=== PATIENT | female | born 1995 | race Caucasian/White ===

== ENCOUNTER 2018-11-19 04:30 | Inpatient (IN) | payer BC, MEDICAID ==
[2018-11-19] VITALS (41 sets, daily range): BP systolic 89–154; BP diastolic 6–81
[~2018-11-19] VITALS: Ht 175.3 cm; Wt 106.7 kg
--- NOTE | 2018-11-19 04:45 | NUR ---
YANELYBREA presented to unit via ambulatory from ED, accompanied by family , with c/o INDUCTION. YANELYBREA weighed, gowned, voided, and to bed. EFHM and TOCO applied, VS taken. YANELYBREA oriented to bed controls, call light, TV, heat, and A/C controls.
[2018-11-19] MEDS ORDERED: OXYTOCIN/NORMAL SALINE 500 ML IV SCH ×2 (04:46→11:28)
[2018-11-19] MEDS ORDERED: D5 LR IV SOLUTION 1,000 ML IV SCH (04:46)
[2018-11-19] MEDS ORDERED: PREN-37 PO (04:56)
[2018-11-19 05:32] LABS: BASOPHILS % (AUTO) 0 % (0-10); EOSINOPHILS # (AUTO) 0.1 10^3/uL (0.0-0.3); EOSINOPHILS % (AUTO) 1 % (0-10); HEMATOCRIT 38 % (35-52); HEMOGLOBIN 12.8 G/DL (11.5-16.0); LYMPHOCYTES # (AUTO) 3.1 X 10^3 (1.0-4.0); LYMPHOCYTES % (AUTO) 22 % (12-44); MEAN CORPUSCULAR HEMOGLOBIN 31 PG (25-34); MEAN CORPUSCULAR HGB CONC 33 G/DL (32-36); MEAN CORPUSCULAR VOLUME 92 FL (80-99); MEAN PLATELET VOLUME 11.6 FL (7.4-10.4); MONOCYTES # (AUTO) 1.1 X 10^3 (0.0-1.0); MONOCYTES % (AUTO) 8 % (0-12); NEUTROPHILS # (AUTO) 9.8 X 10^3 (1.8-7.8); NEUTROPHILS % (AUTO) 70 % (42-75); PLATELET COUNT 257 10^3/uL (130-400); RED CELL DISTRIBUTION WIDTH 14.3 % (10.0-14.5); WHITE BLOOD COUNT 14.1 10^3/uL (4.3-11.0)
[2018-11-19] MEDS ORDERED: SUFENTA 0.6MCG/ML BUPIVA 0.125 100 ML ONE (05:54)
[2018-11-19] MEDS ORDERED: fentaNYL INJECTION 100 MCG/2 ML AMP ONE (06:40)
[2018-11-19] MEDS ORDERED: LIDOCAINE PF 2% 5 ML (XYLOCAINE) VIAL ONE (06:40)
[2018-11-19] MEDS ORDERED: BUPIVACAINE 0.25% 30 ML (SENSORCAINE) VIAL ONE (06:40)
[2018-11-19] MEDS ORDERED: LACTATED RINGERS 1,000 ML IV SCH (07:11)
--- NOTE | 2018-11-19 07:12 | History & Physical-OB ---
OB - Chief Complaint & HPI Date/Time Date of Admission: Date of Admission: Nov 19, 2018 at 04:37 Date seen by a Provider: Nov 19, 2018 Time Seen by a Provider: 07:05 Chief Complaint/History OB-Reason for Admission/Chief: Induction of Labor Hx : 3 Hx Para: 2 Expected Date of Delivery: Nov 22, 2018 Gestational Age in Weeks: 39 Gestational Age in Days: 4 Indication for induction: other (39 4/7 weeks gestation) Admission Nurse Assessment Rev: Yes Allergies and Home Medications Allergies Coded Allergies: No Known Drug Allergies (Unverified , 11/19/18) Patient Home Medication List Home Medication List Reviewed: Yes OB - History Hx of Present Care: Yes Ultrasounds: Normal mid trimester US Obstetrical Complications: None Medical Complications: None Information Induced Hypertension: No Maternal Gestational Diabetes: No Hemorrhage: No Obstetrical History Hx : 3 Hx Para: 2 Hx # Term Pregnancies: 2 Hx # Pregnancies: 0 Number of Living Children: 2 Hx Termination: No Hx Multiple Gestation: No Hx Ectopic : No Hx Stillbirth: No Hx Complication: No Hx Induced Hypertens: No Hx Maternal Gestational Diabet: No Hx Hemorrhage: No Delivery History Hx Dystocia: No Hx Forceps Assisted Delivery: No Hx Vacuum Extraction Assisted: No Hx Placenta Abnormality: No Hx Distress: No Hx Large For Gestational Age I: No Hx Small for Gestational Age I: No Hx Section: No Hx Vaginal Delivery Post C-Sec: No Hx Blood Disorders: No Adverse Rxn to Tranfusion: No Patient Past Medical History Noncontributory Social History/Family History HIV/AIDS: No Sexually Transmitted Disease: No Alcohol Use: Denies Use Recreational Drug Use: No OB - Admission Exam Physical Exam HEENT: PERRLA Heart: Rhythm Normal Lungs: Clear Abdomen: Gravid Extremities: Edema (Minimal edema) Cervical Dilatation: 2cm Effacement: 50% Station: -3 Membranes: Intact Heart Rate: 140's Accelerations: Accelerations Present Decelerations: Prolonged Decelerations (Prolonged deceleration (2 minutes) prior to start of Pitocin or AROM) Short Term Variability: Present Product Manager [employer] Variability: Average (6-25) Intensity: Moderate Lilly Scoring Tool (Modified) Dilation (cm): 1-2cm (1) Effacement (%): 51-79% (2) Descent/Station: -3 (0) Cervix Consistency: Medium(1) Cervix Position: Middle/Mid-Position (1) Labs Laboratory Tests Test 11/19/18 05:15 Range/Units White Blood Count 14.1 H 4.3-11.0 10^3/uL Red Blood Count 4.19 L 4.35-5.85 10^6/uL Hemoglobin 12.8 11.5-16.0 G/DL Hematocrit 38 35-52 % Mean Corpuscular Volume 92 80-99 FL Mean Corpuscular Hemoglobin 31 25-34 PG Mean Corpuscular Hemoglobin Concent 33 32-36 G/DL Red Cell Distribution Width 14.3 10.0-14.5 % Platelet Count 257 130-400 10^3/uL Mean Platelet Volume 11.6 H 7.4-10.4 FL Neutrophils (%) (Auto) 70 42-75 % Lymphocytes (%) (Auto) 22 12-44 % Monocytes (%) (Auto) 8 0-12 % Eosinophils (%) (Auto) 1 0-10 % Basophils (%) (Auto) 0 0-10 % Neutrophils # (Auto) 9.8 H 1.8-7.8 X 10^3 Lymphocytes # (Auto) 3.1 1.0-4.0 X 10^3 Monocytes # (Auto) 1.1 H 0.0-1.0 X 10^3 Eosinophils # (Auto) 0.1 0.0-0.3 10^3/uL Basophils # (Auto) 0.0 0.0-0.1 10^3/uL OB - Assessment/Plan/Diagnosis Assessment Assessment: induction of labor Admission Dx Intrauterine at 39 4/7 weeks 2, Unknown GBS Status Admission Status: Inpatient Order (span 2 midnights) Reason for Inpatient Admission: Pitocin Induction of Labor with expectant Vaginal Delivery Plan Plan: Induction Induction Method: per Pitocin Protocol SUSAN RANGEL DO Nov 19, 2018 07:12
[2018-11-19] MEDS ORDERED: NALOXONE 0.4 MG/ML 1 ML (NARCAN) VIAL IV PRN (07:15)
[2018-11-19] MEDS ORDERED: ONDANSETRON 4 MG/2 ML (SDV) Z0FRAN IV PRN (07:15)
[2018-11-19] MEDS ORDERED: diphenhydrAMINE 50 MG/ML INJ (BENADRYL) IV PRN (07:15)
[2018-11-19] MEDS ORDERED: EPIDURAL (SUFENTA 0.6MCG/ML BUPIVA 0.125%) 100 ML BAG EPI PRN (07:15)
--- NOTE | 2018-11-19 08:00 | NUR ---
IV pitocin infusing for induction of labor. Rate changed to 999ml for remainder of bag at 1042. Additional 500 ml of Pitocin hung at 1117 @ 125ml/hr with completion at 1515. Saline locked.
[2018-11-19] MEDS ORDERED: WITCH HAZEL(TUCKS) 40 EA JAR TOP PRN (11:30)
[2018-11-19] MEDS ORDERED: TETANUS,DIPTH,PERTUSS P/F (BOOSTRIX) 0.5 ML VIAL IM ONE (11:30)
[2018-11-19] MEDS ORDERED: MEASLES,MUMPS,RUBELLA 1 EA INJ SQ ONE (11:30)
--- NOTE | 2018-11-19 11:59 | OB Labor & Delivery Record ---
L&D History Date of Service Date of Service: Nov 19, 2018 History Expected Date of Delivery: Nov 22, 2018 Gestational Age in Weeks: 39 Hx : 3 Hx Para: 2 Complications Events: Routine care Operative Indications (Cesarea: N/A-Vaginal Delivery Intrapartal Events: None L&D Stage1 Stage One Onset of Labor - Date: Nov 19, 2018 Onset of Labor - Time: 08:00 Monitors and Tracing Monitor Mode: Internal Heart Rate: 140 Station: -3 Long-Term Variability: Moderate (11-25) Short Term Variability: Present Presentation: Vertex Vital Signs VS - Last 72 Hours, by Label 11/19/18 11/19/18 11/19/18 11/19/18 05:30 06:00 06:15 06:30 Temp 98.7 Pulse 97 85 Resp 18 18 18 18 B/P (MAP) 130/78 (95) 118/67 (84) 11/19/18 11/19/18 11/19/18 11/19/18 06:45 06:52 06:55 06:58 Pulse 81 89 88 93 Resp 18 18 18 18 B/P (MAP) 140/76 (97) 140/74 (96) 143/79 (100) Pulse Ox 98 99 99 98 11/19/18 11/19/18 11/19/18 11/19/18 07:00 07:11 07:13 07:15 Pulse 81 112 93 81 Resp 18 B/P (MAP) 100/49 (66) 98/54 (69) 89/54 (66) Pulse Ox 98 97 97 96 11/19/18 11/19/18 11/19/18 11/19/18 07:20 07:23 07:25 07:30 Pulse 85 78 86 78 Resp 16 16 B/P (MAP) 96/55 (69) 123/69 (87) 128/69 (88) 120/60 (80) Pulse Ox 96 97 99 11/19/18 11/19/18 11/19/18 11/19/18 07:32 07:34 07:37 07:41 Pulse 80 79 81 73 B/P (MAP) 119/62 (81) 114/58 (76) 115/57 (76) 117/56 (76) Pulse Ox 97 97 98 98 11/19/18 11/19/18 11/19/18 07:43 07:45 08:00 Temp 97.0 Pulse 70 72 72 B/P (MAP) 113/57 (75) 115/56 (75) 113/59 (77) Pulse Ox 98 97 98 Fundal Ht/Cervical Dilatation Uterus Position: -3 Cervical Effacement Percentage: 50 Rupture of Membranes Spontaneous Ruture of Membrane: No Amniotic Membrane Rupture Time: 0720 Amniotic Membrane Fluid Desc.: Clear Vaginal Bleeding Description: None Induction/Anesthesia Epidural Cath Placement - Time: 658 L&D Stage2 Monitors and Tracing Monitor Mode: Internal Heart Rate: 140 Electronic Resources Librarian Variability: Moderate (11-25) Short Term Variability: Present Position: Right Occiput Anterior Presentation: Vertex Cord Descript/Complications Cord Vessel Description: 3 Vessels Delivery Type Infant Delivery Method: Spontaneous Vaginal Episiotomy/Perineal Laceration Episiotomy Description: Midline Sutures Used: Vicryl Degree (describe repair) Midline episiotomy with standard repair using 2-0 and 3-0 Vicryl L&D Stage3 Pictocin Pitocin Administration mu/min: 10 Pitocin ml/hr: 10 Pitocin Administration Comment: 632 - infusion increased Placenta Delivery Placenta Delivery: Spontaneous Delivery Summary Summary Total Labor Time Ms. Virk progressed to complete. Prepped and draped in the normal sterile fashion. She was given a midline episiotomy, the vertex delivered in a CORIE presentation. The mouth and nose was suctioned on the perineum. A viable male was delivered without complications. The cord was doubly clamped and cut. The was placed on mom's chest with the pediatric caregiver in attendance. Cord blood was obtained. The placenta was delivered with trailing membranes, intact. Cervix was examined--no laceration. Uterus explored and cleared of all clots and debris. The midline episiotomy was repaired with a 3- 0 and 2-0 Vicryl in standard fashion. Both mom and in good and stable condition. EBL 300 ml. Estimated blood loss (mL): 300 ml Attending at delivery: Dr. Escobedo Condition of Delivery Examined: Cervix Examined, Uterus Explored Post Hemorrhage: SUSAN Zhu DO Nov 19, 2018 11:59
[2018-11-19] MEDS ORDERED: BENZOCAINE/MENTHOL (DERMOPLAST) 56 ML CAN TP PRN (13:00)
[2018-11-19] MEDS: IBUPROFEN 800 MG (MOTRIN) TAB PO SCH ×2 (13:05→20:49)
--- NOTE | 2018-11-19 13:30 | NUR ---
Transferred to room 309. Instructions on meals, medications, & alesha-care.
[2018-11-19] MEDS ORDERED: CATHETER FLUSH 10 ML SYR IV SCH (14:00)
[2018-11-20 04:00] VITALS: BP 125/77
[2018-11-20] MEDS: IBUPROFEN 800 MG (MOTRIN) TAB PO SCH ×2 (04:50→13:08)
[2018-11-20 06:12] LABS: BASOPHILS % (AUTO) 0 % (0-10); EOSINOPHILS # (AUTO) 0.2 10^3/uL (0.0-0.3); EOSINOPHILS % (AUTO) 2 % (0-10); HEMATOCRIT 35 % (35-52); HEMOGLOBIN 11.5 G/DL (11.5-16.0); LYMPHOCYTES # (AUTO) 2.5 X 10^3 (1.0-4.0); LYMPHOCYTES % (AUTO) 19 % (12-44); MEAN CORPUSCULAR HEMOGLOBIN 31 PG (25-34); MEAN CORPUSCULAR HGB CONC 33 G/DL (32-36); MEAN CORPUSCULAR VOLUME 94 FL (80-99); MEAN PLATELET VOLUME 11.4 FL (7.4-10.4); MONOCYTES # (AUTO) 0.9 X 10^3 (0.0-1.0); MONOCYTES % (AUTO) 7 % (0-12); NEUTROPHILS # (AUTO) 9.6 X 10^3 (1.8-7.8); NEUTROPHILS % (AUTO) 72 % (42-75); PLATELET COUNT 189 10^3/uL (130-400); RED CELL DISTRIBUTION WIDTH 14.4 % (10.0-14.5); WHITE BLOOD COUNT 13.3 10^3/uL (4.3-11.0)
[2018-11-20] MEDS ORDERED: PRENATAL VITAMIN 1 EA TAB PO SCH (07:00)
--- NOTE | 2018-11-20 07:09 | Discharge Inst-Women's Service ---
Discharge Inst-Women's Serv Depart Medication/Instructions New, Converted or Re-Newed RX: RX Given to Pt/Family Instructions Pelvic rest for 6 weeks No heavy Lifting less than 20 lbs No strenuous activities Tub soaks 2-3 x daily Return to office in 6 weeks Call with problems or questions Final Diagnosis Intrauterine at 39 weeks Activity Activity: Activity as Tolerated Driving Instructions: You May Drive NO SMOKING: NO SMOKING Nothing Inside Vagina: No Douching, No [place], No Tampons Diet Discharge Diet: No Restrictions Symptoms to Report to : Bleeding Excessive, Pain Increased, Fever Over 101 Degrees F, Vaginal Bleeding Increase, Vaginal Discharge Foul For Any Problems or Questions: Contact Your Physician Skin/Wound Care Bathing Instructions: Alona Shower SUSAN RANGEL DO Nov 20, 2018 07:08
[2018-11-20] MEDS ORDERED: DOCU-143 PO (07:12)
[2018-11-20] MEDS ORDERED: OXC5T PO (07:12)
[2018-11-20] MEDS ORDERED: IBUP-1780 PO (07:12)
--- NOTE | 2018-11-20 07:13 | NUR ---
here. dismissal orders received.
--- NOTE | 2018-11-20 07:20 | Discharge Summary ---
Diagnosis/Chief Complaint Date of Admission Nov 19, 2018 at 04:37 Date of Discharge November 20, 2016 Discharge Date: Nov 20, 2018 Discharge Time: 07:20 Admission Diagnosis Admission Diagnosis Intrauterine at 39 weeks Discharge Diagnosis Intrauterine at 39 weeks 2. Vaginal Delivery Reason Hospital Visit Pitocin Induction of Labor Discharge Summary Hospital Course Was the Problem List Reviewed?: Yes Hospital Course Ms. Virk was admitted to the hospital for an Pitocin Induction of Labor. She received an Epidural for antepartum pain management. I artificially ruptured her membranes. She progressed to complete. Then, delivered a healthy viable without complications. The remainder of her hospitalization was unremarkable. Her vital signs remained stable throughout her hospitalization. She will be discharge to home with instructions, prescriptions and a follow up appointment. Labs Laboratory Tests 11/19/18 05:15: White Blood Count 14.1H, Red Blood Count 4.19L, Mean Platelet Volume 11.6H, Neutrophils # (Auto) 9.8H, Monocytes # (Auto) 1.1H 11/20/18 06:00: White Blood Count 13.3H, Red Blood Count 3.72L, Mean Platelet Volume 11.4H, Neutrophils # (Auto) 9.6H Procedures None. Discharge Physical Examination Allergies: Coded Allergies: No Known Drug Allergies (Unverified , 11/19/18) Vitals & I&Os Vital Signs Date Time Temp Pulse Resp B/P (MAP) Pulse Ox O2 Delivery O2 Flow Rate FiO2 11/19/18 15:15 99.6 81 18 107/65 (79) 97 Room Air General Appearance: Alert, Oriented X3, Cooperative HEENT: Atraumatic, PERRLA, EOMI Respiratory: Clear to Auscultation, Normal Air Movement Cardiovascular: Regular Rate, No Murmurs Abdominal: Normal Bowel Sounds, No Tenderness Extremities: No Clubbing, No Cyanosis, No Edema Skin: No Rashes Neuro: Normal Gait Discharge Home Medications Reviewed and agree with Discharge Medication list on patient's Discharge Instruction sheet Instructions to Patient/Family Please see electronic discharge instructions given to patient. Clinical Quality Measures DVT/VTE Risk/Contraindication: Risk Factor Score Per Nursin RFS Level Per Nursing on Admit: 2=Moderate SUSAN RANGEL DO Nov 20, 2018 07:20
[2018-11-20 09:25] VITALS: BP 117/59
--- NOTE | 2018-11-20 09:25 | NUR ---
initial shift assessment completed, see interventions for further. POC reviewed, states understanding.
[2018-11-20 12:00] VITALS: BP 128/67
--- NOTE | 2018-11-20 13:08 | NUR ---
dismissal instructions given, verbalizes understanding. reviewed Rx's administrations schedule and dosage. reminded pt that office will call with 6 week post appointment. signature page signed, placed on chart.
--- NOTE | 2018-11-20 13:35 | NUR ---
pt dismissed to private vehicle via w/c with Kiran Alonso RN, infant and mother @ side. infant secured in rear facing car seat. pt stable with no sx's of distress noted.
--- NOTE | 2018-11-20 14:44 | Anesthesia-General Post-Op ---
MAC Patient Condition Mental Status/LOC: Same as Preop Cardiovascular: Satisfactory Nausea/Vomiting: Absent Respiratory: Satisfactory Pain: Controlled Complications: Absent Post Op Complications Complications None Follow Up Care/Instructions Patient Instructions None needed. Anesthesiology Discharge Order Discharge Order Patient was seen this morning in post-op rounds and she was doing well, no complaints, stable vital signs, no apparent adverse anesthesia problems. RENE BACA DO Nov 20, 2018 14:44
== END 2018-11-20 13:35 | disposition home or self-care (01) | DRG 807 ==
LOC: LDRP 04:37
PROVIDERS: ADMIT Obstetrics & Gynecology; ATTEND Obstetrics & Gynecology
PROC: 10E0XZZ Delivery of Products of Conception, External Approach (ICD-10-PCS; principal; 2018-11-19)
PROC: 0W8NXZZ Division of Female Perineum, External Approach (ICD-10-PCS; 2018-11-19)
DX: O76 Abnormality in fetal heart rate and rhythm complicating labor and delivery (principal); Z3A.39 39 weeks gestation of pregnancy; Z37.0 Single live birth
CPT/HCPCS: 36415; 85025; 86850; 86900; 86901

== ENCOUNTER → 2020-03-12 | Outpatient (CLI) | payer BC, MEDICAID ==
[~2020-03-12] MED LIST: DOCU-143 PO; IBUP-1780 PO; OXC5T PO; PREN-37 PO
--- NOTE | 2020-03-12 17:45 | Diagnostic Imaging Report ---
INDICATION: Tailbone pain for 3 months. Time of exam: 3:43 PM Frontal and lateral views of the sacrum and coccyx were obtained. Sacrococcygeal alignment are normal. No fractures are identified. Sacral arcuate lines are intact. SI joints are unremarkable. IMPRESSION: No acute bony abnormality is detected. Dictated by: Dictated on workstation # [id number]
== END ==
LOC: RAD FS 15:33
PROVIDERS: ATTEND Nurse Practitioner Family
DX: M53.3 Sacrococcygeal disorders, not elsewhere classified (principal)
CPT/HCPCS: 72220

== ENCOUNTER → 2020-04-13 | Outpatient (CLI) | payer BC, MEDICAID ==
[~2020-04-13] MED LIST changes: +GADOBUTROL 10 MMOL/10 ML (GADAVIST) VIAL IV ONE
--- NOTE | 2020-04-13 17:16 | Diagnostic Imaging Report ---
PROCEDURE: MRI pelvis with and without contrast. TECHNIQUE: Multiplanar, multisequence MRI of the pelvis was performed with and without contrast. INDICATION: Tailbone pain. No known injury. Sacral back pain, sacral mass. COMPARISON: Radiographs from 03/12/2020 FINDINGS: No acute fracture is seen in the pelvis, particularly the sacrum. There is sclerosis at the left sacroiliac joint anteriorly and superiorly, particularly on the iliac side more than the sacral side. This appears to be present in lesser degree on the right. No erosive changes are seen. There is mild associated fluid and enhancement of the sacroiliac joint in this region. No other sacral lesions are seen. Alignment appears normal. The femoral heads are well-seated in the acetabula bilaterally. There is no hip joint effusion seen. No free fluid is seen in the pelvis. No masses or lymphadenopathy are seen. IMPRESSION: 1. Sclerosis about the sacroiliac joints, left greater than right, and predominantly on the iliac side. 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 No erosions are seen. Dictated by: Dictated on workstation # [id number]
== END ==
LOC: RAD 13:29
PROVIDERS: ATTEND Nurse Practitioner Family
DX: M53.3 Sacrococcygeal disorders, not elsewhere classified (principal)
CPT/HCPCS: 72197

== ENCOUNTER → 2021-06-14 | Outpatient (CLI) | payer OTHER ==
[~2021-06-14] MED LIST changes: -GADOBUTROL 10 MMOL/10 ML (GADAVIST) VIAL IV ONE
--- NOTE | 2021-06-14 09:33 | Diagnostic Imaging Report ---
INDICATION: Left knee pain. TECHNIQUE: AP and lateral views of the left knee were obtained. FINDINGS: No fracture or acute bony abnormality is seen. The joint spaces are unremarkable. IMPRESSION: Negative left knee. Dictated by: Dictated on workstation # [id number]
== END ==
LOC: RAD 09:01
PROVIDERS: ATTEND Anesthesiology Pain Medicine
DX: Z02.71 Encounter for disability determination (principal); M25.562 Pain in left knee
CPT/HCPCS: 73560

== ENCOUNTER 2022-09-13 17:02 | Emergency (ER) | payer MEDICAID, OTHER ==
[~2022-09-13] VITALS: Ht 175.2 cm; Wt 104.3 kg
[2022-09-13 19:27] LABS: BILIRUBIN,URINE NEGATIVE (NEGATIVE); CLARITY,URINE CLEAR; COLOR,URINE YELLOW; GLUCOSE, URINE (UA) NEGATIVE (NEGATIVE); KETONES,URINE NEGATIVE (NEGATIVE); LEUKOCYTE ESTERASE ,URINE NEGATIVE (NEGATIVE); NITRITE,URINE NEGATIVE (NEGATIVE); PROTEIN,URINE NEGATIVE (NEGATIVE)
[2022-09-13 19:32] LABS: BACTERIA,URINE TRACE /HPF; SQUAMOUS EPITHELIAL CELL,UR 0-2 /HPF
--- NOTE | 2022-09-13 21:50 | ED GU-Female ---
General Chief Complaint: - Reproductive Stated Complaint: NICOLE WITH URINE AND BLADDER Nursing Triage Note: Patient states that she is having symptoms of UTI. Source: patient History of Present Illness Date Seen by Provider: Sep 13, 2022 Time Seen by Provider: 21:11 Initial Comments 27 yo female presenting with complaints of cough and cold symptoms but also concerned that she may have a UTI. She has been having some abdominal cramping at times and occasional nausea. She has noticed that she has had some swelling in her hands and feet. She has had nausea with abdominal cramping but has not been having emesis. She denies any change in her bowel movements. She has been having the symptoms for over 3 weeks since her last menstrual period. She denies any fever, chills, vomiting, diarrhea. Severity/Quality: mild, cramping Location: other (Generalized abdomen) Radiation: none Activities at Onset: none Prior Genitourinary Problems: none Sexual [place] History: less than 2 months ago Modifying Factors: Worsens With Movement, Worsens With Palpation Associated Symptoms: abdominal pain (Diffuse generalized abdominal cramping that has been intermittent); No diaphoresis, No dysuria, No fever/chills, No loss of bladder control, No lower back pain, No lumps, No mass, No nocturia, No polyuria; swelling (Mild swelling in her hands and feet); No syncope, No urinary frequency Allergies and Home Medications Allergies Coded Allergies: No Known Drug Allergies (Unverified , 11/19/18) Patient Home Medication List Home Medication List Reviewed: Yes Docusate Sodium (Colace) 100 Mg Capsule, 100 MG PO DAILY Prescribed by: SUSAN RANGEL on 11/20/18711 Ibuprofen (Ibuprofen) 800 Mg Tablet, 800 MG PO Q8HR PRN for pain or cramps Prescribed by: SUSAN RANGEL on 11/20/18 07 Oxycodone Hcl (Oxycodone IR) 5 Mg Tab, 5 MG PO Q6H PRN for PAIN-SEVERE Prescribed by: SUSAN RANGEL on 11/20/18 07 Vit/Iron Fumarate/FA ( Tablet) 1 Each Tablet, 1 EACH PO, (Reported) Entered as Reported by: JESSE WILL on 11/19/18 0456 Review of Systems Review of Systems Constitutional: see HPI EENTM: nose congestion Respiratory: cough Cardiovascular: no symptoms reported Gastrointestinal: see HPI Genitourinary: see HPI Musculoskeletal: no symptoms reported Skin: No change in color, No rash Psychiatric/Neurological: Denies Headache Past Zlpujoe-Wcsvxm-Niplgo Hx Patient Social History Tobacco Use?: No Substance use?: No Alcohol Use?: No Pt feels they are or have been: No Seasonal Allergies Seasonal Allergies: No Past Medical History Surgeries: Yes (EGD, HEMORRHOIDECTOMY, ) Respiratory: No Sleep Apnea Currently Using CPAP: No Currently Using BIPAP: No Cardiac: No Neurological: No Sexually Transmitted Disease: No HIV/AIDS: No Genitourinary: No Gastrointestinal: No Hemorrhoids Musculoskeletal: No Endocrine: No HEENT: No Cancer: No Psychosocial: No Integumentary: No Blood Disorders: No Adverse Reaction/Blood Tranf: No Family Medical History Patient reports no known family medical history. Physical Exam Vital Signs Vital Signs - First Documented 09/13/22 18:36 Temp 37.0 Pulse 93 Resp 14 B/P (MAP) 124/82 (96) Pulse Ox 99 O2 Delivery Room Air Capillary Refill : Less Than 3 Seconds Height, Weight, BMI Height: 5'9.00" Weight: 235lbs. 4.0oz. [id number]; 33.00 BMI Method: General Appearance: WD/WN, no apparent distress HEENT: PERRL/EOMI, pharynx normal Neck: non-tender, full range of motion, supple, normal inspection Cardiovascular: normal peripheral pulses, regular rate, rhythm Respiratory: chest non-tender, lungs clear, normal breath sounds, no respiratory distress, no accessory muscle use Gastrointestinal: normal bowel sounds, soft, no pulsatile mass; No distended, No guarding, No rebound; tenderness (Complains of diffuse mild abdominal cramping with palpation) Rectal: deferred Extremities: normal range of motion, non-tender, normal capillary refill, swelling (Mild swelling to hands and feet) Neurologic/Psychiatric: alert, oriented x 3 Skin: normal color, warm/dry Progress/Results/Core Measures Suspected Sepsis SIRS Temperature: Pulse: 93 Respiratory Rate: 14 Blood Pressure 124 /82 Mean: 96 Results/Orders Lab Results My Orders Vital Signs/I&O Capillary Refill : Less Than 3 Seconds Blood Pressure Mean: 96 Progress Note : Progress Note Urinalysis was obtained while patient was in the waiting room. This did not demonstrate any evidence of infection. She did have elevated specific gravity which could indicate some dehydration. Since she was not having pain with urination or frequency this did not appear to be a UTI. Discussed with the patient that we could do some blood work and try to look for reason that she had the swelling and abdominal cramping for the last 3 to 4 weeks but it would be another 45 minutes to an hour to get the blood test back and patient had already had a long wait in the waiting room due to multiple critical patients in the emergency department. She opted to follow-up with her primary care doctor as she has an appointment coming up next week with him. Counseled if she had worsening symptoms or new problems that she can always come back to be further evaluated through the emergency department if she is not able to get with her regular doctor. Departure Impression Primary Impression: Abdominal cramping Additional Impressions: Mild peripheral edema Dehydration Disposition: 01 HOME, SELF-CARE Condition: Stable Departure-Patient Inst. Decision time for Depature: 21:49 Referrals: AGUSTIN PEREZ MD (PCP/Family) Primary Care Physician Patient Instructions: Dehydration, Adult ED, Abdominal Pain, Adult ED Add. Discharge Instructions: Your urinalysis had shown that it was concentrated which goes along with some dehydration. The abdominal cramping and mild swelling you have been having could also be related to hydration or electrolyte changes. If this persists or worsens then blood work could be helpful to look for other sources of swelling and abdominal cramping. You could check with Dr. Perez as scheduled or see if he can get you in to be seen sooner. If your symptoms worsen or you have new symptoms then you could return for additional testing through the emergency department. All discharge instructions reviewed with patient and/or family. Voiced understanding. CHELSIE SARGENT MD Sep 13, 2022 21:50
[2022-09-13 21:52] VITALS: BP 124/82
== END 2022-09-13 21:55 | disposition home or self-care (01) ==
LOC: EDUNIT# 17:02 → ER FS 17:04
DX: R10.9 Unspecified abdominal pain (principal); R60.9 Edema, unspecified; E86.0 Dehydration; Z28.310 Unvaccinated for COVID-19
CPT/HCPCS: 81000; 99282